=== PATIENT | male | born 1955 | race Hispanic/Latino ===

== ENCOUNTER 2020-06-14 05:51 | Day surgery (SDC) | payer OTHER ==
[2020-06-08 09:02] LABS: Basophils % 0.5 % (0-1.3); Hematocrit 46.2 % (39.6-49.0); Lymphocytes % 21.1 % (15.3-44.8); MPV 8.8 fL (7.6-11.3); RBC Red Blood Cell Count 5.12 M/uL (4.33-5.43)
--- NOTE | 2020-06-08 09:05 | RAD REPORT ---
EXAM DESCRIPTION: Yared Fischer (2 Views)06/08/2020 8:53 am CLINICAL HISTORY: Preop for shoulder surgery COMPARISON: None FINDINGS: The lungs appear clear of acute infiltrate. The heart is normal size IMPRESSION: No acute abnormalities displayed
[2020-06-08 10:07] LABS: Protime INR 0.92
--- OUTSIDE RECORDS SUMMARY | 2020-06-14 05:56 | XMS REPORT ---
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
--- OUTSIDE RECORDS SUMMARY | 2020-06-14 05:56 | XMS REPORT ---
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
--- OUTSIDE RECORDS SUMMARY | 2020-06-14 05:56 | XMS REPORT ---
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
--- OUTSIDE RECORDS SUMMARY | 2020-06-14 05:56 | XMS REPORT ---
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
--- OUTSIDE RECORDS SUMMARY | 2020-06-14 05:56 | XMS REPORT | Continuity of Care Document ---
:1955 Author Organization [facility] t Address [facility] [place] [address] Care Team Providers Name Role Phone Unavailable Unavailable Unavailable Problems Condition Condition Condition Status Onset Resolution Last Treating Co mments Source Name Details Category Date Date Treatment Clinician Date Mixed Mixed Problem Active [facility] hyperlipid hyperlipid Arcelia kes - emia emia [facility] Other Other Problem Active [facility] chronic chronic [facility] pain pain [facility] Subacromia Subacromia Problem Active [facility] bursitis l bursitis Arcelia kes - of left of left Mem[facility] shoulder shoulder l joint joint [facility] Pain, Pain, Problem Active [facility] joint, joint, [facility] - shoulder, shoulder, Kevyn alban left left l [facility] Coronary Coronary Problem Active [facility] artery artery [facility] - disease of disease of [place] artery of artery of [place] heart with heart with Cl inics stable stable angina angina pectoris pectoris Stented Stented Problem Active [facility] coronary coronary [facility] - artery artery [facility] l [facility] Body mass Body mass Problem Active [facility] index index [facility] - (BMI) (BMI) Memoria 30.0-30.9, 30.0-30.9, l adult adult [facility] Other Other Problem Active [facility] obesity obesity [facility] - due to due to Memoria excess excess l calories calories Outpat i ent Clinics Allergies, Adverse Reactions, Alerts This patient has no known allergies or adverse reactions. Medications Ordered Filled Start Stop Current Ordering Indication Dosage Frequency Signature Comments Components Source Medication Medication Date Date Medication? Clinician (SIG) Name Name Acetaminoph Acetaminoph Yes Brian [address] [facility] en-Codeine en-Codeine 8- as needed [facility] - #3 #3 00:00: Memoria 00 l [facility] Atorvastati Atorvastati Yes Brian [address] [facility] n Calcium n Calcium 3- [facility] - 00:00: Mem 00 [facility] - Yes Brian not [facility] 1-30 defined [facility] - 00:00: Memoria 00 [facility] Procedures This patient has no known procedures. Encounters Start End Encounter Admission Attending Care Care Encounter Source Date/Time Date/Time Type Type Clinicians Facility Department ID 2020-06-12 2020-06-12 Outpatient Alexy Traceyt [id number] [facility] 12:09:00 12:09:00 t [facility] 2020-06-09 2020-06-09 Outpatient Alexy Traceyt [id number] [facility] 08:08:00 08:08:00 t [facility]Ke[facility] 2020-05-15 2020-05-15 [place]patient [place] [id number] [facility] 09:02:00 09:02:00 t [facility] 2020-05-11 2020-05-11 [facility] [place] [id number] 16:48:00 16:48:00 t [facility] 2020-05-11 2020-05-11 [place]patient [place] [id number] 15:00:00 15:00:00 t [facility] 2020-05-10 2020-05-10 [place] [place] [place] [id number] 15:15:00 15:15:00 [facility] 2020-05-09 2020-05-09 Outpatient [place] [id number] [address] 16:38:00 16:38:00 t [facility] and [facility] - [facility] 2020-04-28 2020-04-28 [place] [place] [id number] [address] 07:12:00 07:12:[address] [facility] - [facility] Clinics 2020-04-25 2020-04-25 [place] [id number] [address] 09:08:00 09:08:[address] Luke [facility] - Drive [facility] 2020-04-04 2020-04-04 [place] [place] [place] [id number] [address] 11:23:00 11:23:[address] Luke [facility] - Drive [facility] 2020-03-29 2020-03-29 [place] [place] [place] [id number] [facility] 14:51:00 14:51:00 t [facility] 2020-03-22 2020-03-22 [place] [place] [place] [id number] [address] 08:52:00 08:52:[facility] [address] [facility]ics 2020-03-17 2020-03-17 [place] [place] [place] [id number] [address] 08:45:00 08:45:00 [facility] [place] [facility] [facility] 2020-03-15 2020-03-15 [place] [place] [place] [id number] 13:15:00 13:15:00 t Bone Bone and [facility] - [facility] 2020-03-14 2020-03-14 [place] [place] [id number] [address] 15:06:00 15:06:00 t Bone [facility] and [facility] - [facility] 2020-02-17 2020-02-17 [place] [place] [place] [id number] 09:00:00 09:00:00 t Bone Bone and [facility] - [facility] ent Clinics 2020-02-14 2020-02-14 [place] [place] [place] [id number] 14:17:00 14:17:00 t [facility] 2020-02-03 2020-02-03 [place] [place] [place] [id number] [address] 10:45:00 10:45:00 t [facility] Clinics 2020-01-24 2020-01-24 [place] [place] [place] [id number] 10:22:00 10:22:00 t [facility] and [facility] - [facility] 2019-12-30 2019-12-30 [facility] [place] [id number] 10:27:00 10:27:00 t ARKeX Elastra [employer] [facility] 2019-12-27 2019-12-27 [place] [place] [id number] 16:56:00 16:56:00 t Bone [facility] and [facility] ent Clinics 2019-12-22 2019-12-22 [place] [id number] [address] 16:00:00 16:00:00 t mPowa [facility] ent Clinics 2019-12-16 2019-12-16 [place] [id number] 14:33:00 14:33:00 t ARKeX Elastra [facility] ent Clinics 2019-12-16 2019-12-16 [place] [id number] 09:30:00 09:30:00 t Bone Bone and [facility] ent Clinics 2019-12-13 2019-12-13 [place] [place] [place] [id number] 09:42:00 09:42:00 t Sw[facility] Clinics 2019-12-09 2019-12-09 [place] [place] [place] [id number] 09:30:00 09:30:00 t Bone [facility] and [facility] ent Clinics 2019-12-01 2019-12-01 Outpatient Alexy Maurer [id number] 08:25:00 08:25:00 mPowa [employer] [facility] 2019-11-17 2019-11-17 Outpatient Alexy Maurer [id number] 11:00:00 11:00:00 mPowa [employer] [facility] Results This patient has no known results.
--- OUTSIDE RECORDS SUMMARY | 2020-06-14 05:56 | XMS REPORT ---
:1955 Author Organization eClinicalWorks Care Team Providers Name Role Phone Juan Manuel Lokesh Provider Role Unavailable Allergies, Adverse Reactions, Alerts Substance Reaction Event Type N.K.D.A. 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
--- OUTSIDE RECORDS SUMMARY | 2020-06-14 05:56 | XMS REPORT ---
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
--- OUTSIDE RECORDS SUMMARY | 2020-06-14 05:56 | XMS REPORT ---
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
--- OUTSIDE RECORDS SUMMARY | 2020-06-14 05:56 | XMS REPORT ---
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
--- OUTSIDE RECORDS SUMMARY | 2020-06-14 05:57 | XMS REPORT ---
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
--- OUTSIDE RECORDS SUMMARY | 2020-06-14 05:57 | XMS REPORT ---
:1955 Author Organization eClinicalWorks Care Team Providers Name Role Phone Brian Vega Provider Role Unavailable Allergies, Adverse Reactions, Alerts Substance Reaction Event Type N.K.D.A. Info Not Available Non Drug Allergy Problems Problem Type Condition Code Onset Dates Condition Statu s Assessment Pain, joint, shoulder, left M25.512 Active Problem Other chronic pain G89.29 Active Assessment Traumatic incomplete tear of left S46.012D Active rotator cuff, subsequent encounter Assessment Impingement syndrome, shoulder, M75.42 Active left Assessment Subacromial bursitis of left M75.52 Active shoulder joint Problem Body mass index (BMI) 30.0-30.9, Z68.30 Active adult Problem Pain, joint, shoulder, left M25.512 Active Problem Other obesity due to excess E66.09 Active calories Problem 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
--- OUTSIDE RECORDS SUMMARY | 2020-06-14 05:57 | XMS REPORT ---
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
--- OUTSIDE RECORDS SUMMARY | 2020-06-14 05:57 | XMS REPORT ---
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
--- OUTSIDE RECORDS SUMMARY | 2020-06-14 05:57 | XMS REPORT ---
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 Problem Mixed hyperlipidemia E78.2 Active Problem Subacromial bursitis of left M75.52 Active shoulder joint Problem Stented coronary artery Z95.5 Acti ve Medications Medication Code Code Instructions Start End Status Dosage System Date Date Acetaminophen-Co [facility] 64157458302 300-30 MG Jun 12, Active 1 tablet deine #3 Orally every 6 2019 as neede d hrs Atorvastatin [facility] 11724670632 10 MG Orally Active 1 tablet Calcium Once a day Aspir-81 [facility] 0 Dec 09, Active not 2020 defined Results No Known Results Summary Purpose eClinicalWorks Submission
--- OUTSIDE RECORDS SUMMARY | 2020-06-14 05:57 | XMS REPORT ---
:1955 Author Organization eClinicalWorks Care Team Providers Name Role Phone ZambranoLokesh Provider Role Unavailable Allergies, Adverse Reactions, Alerts Substance Reaction Event Type N.K.D.A. 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 Problem Mixed hyperlipidemia E78.2 Active Problem Subacromial bursitis of left M75.52 Active shoulder joint Problem Stented coronary artery Z95.5 Acti ve Assessment Cervicalgia M54.2 Active Assessment Other chronic pain G89.29 Active Assessment Body mass index (BMI) 30.0-30.9, Z68.30 Active adult Assessment Other obesity due to excess E66.09 Active calories Assessment Stented coronary artery Z95.5 Acti ve Assessment Prediabetes R73.03 Active Assessment Acute pain of left shoulder M25.512 Active Assessment Mixed hyperlipidemia E78.2 Active Assessment History of fall Z91.81 Active Assessment Sprain of left rotator cuff S43.422A Active capsule, initial encounter Medications Medication Code Code Instructions Start End Status Dosage System Date Date [facility] 0 Dec 09, Active not 2020 defined Atorvastatin [facility] 64167000092 10 MG Orally Active 1 tablet Calcium Once a day Results No Known Results Summary Purpose eClinicalWorks Submission
[2020-06-14] MEDS ORDERED: Ringers Lactate 1,000 ML IV ONE ×2 (06:26→08:21)
[2020-06-14] MEDS ORDERED: CEFAZOLIN/SWI 2gm 2 GM/20 ML SYR ONE (06:26)
[2020-06-14] MEDS ORDERED: propofoL 200 MG/20 ML VIAL IV ONE (06:55)
[2020-06-14] MEDS ORDERED: LIDOCAINE 2% MPF 5 ML VIAL ONE (06:55)
[2020-06-14] MEDS ORDERED: MIDAZOLAM HCL 2 MG/2 ML INJ ONE (06:55)
[2020-06-14] MEDS ORDERED: ROCURONIUM 50 MG/5 ML VIAL IV ONE (06:56)
[2020-06-14] MEDS ORDERED: FENTANYL CITR 250 MCG/5 ML ONE (06:56)
[2020-06-14] MEDS ORDERED: ROPLVACAINE HCL 40 ML ONE (07:04)
[2020-06-14] MEDS ORDERED: dexAMETHasone 4 MG/ML VIAL ONE (07:04)
[2020-06-14] MEDS ORDERED: EPINEPHRINE/PF 1 MG/ML AMP ONE (07:20)
[2020-06-14] MEDS ORDERED: KETOROLAC 30 MG/ML INJ ONE (09:17)
--- NOTE | 2020-06-14 09:38 | P.BOP ---
Preoperative diagnosis: left partial rotator cuff tear, bicipital tendinitis, impingement syndrome Postoperative diagnosis: same Primary procedure: left shoulder arthroscopic rotator cuff debridement Secondary procedure: left arthroscopic subacromial decompression Other procedure(s): left open subpectoral biceps tenodesis Hyperion Administrator: NONE,NONE Estimated blood loss: 10 cc Specimen: none Findings: see dictation Anesthesia: General Complications: None Implants: 7 mm arthrex biotenodesis screw Fluids & blood products: per anesthesia record Transferred to: Recovery Room Condition: Good
[2020-06-14 10:33] VITALS: TEMP 96.5
--- NOTE | 2020-06-14 10:43 | RAD REPORT ---
EXAM DESCRIPTION: RAD - Shoulder 1 View - 06/14/2020 10:04 am CLINICAL HISTORY: Right shoulder surgery FINDINGS: Frontal view of the right shoulder was obtained. No fracture or dislocation is seen.
[2020-06-14] MEDS ORDERED: HYDROCODONE/APAP 7.5/325 MG TAB PO ONE (10:45)
[2020-06-14] MEDS ORDERED: HYDROCODONE/APAP 7.5/325 MG TAB ONE (10:50)
[2020-06-14 11:47] VITALS: BP 138/72; O2SAT 94
--- NOTE | 2020-06-19 10:27 | OP ---
Date of Procedure: 06/14/2020 Surgeon: Brian Vega MD Preoperative Diagnoses: Left partial rotator cuff tear, left shoulder impingement syndrome. Postoperative Diagnoses: Left partial rotator cuff tear, left shoulder impingement syndrome. Procedure Performed: 1.Left shoulder arthroscopic rotator cuff debridement. 2.Left shoulder arthroscopic subacromial decompression. 3.Left shoulder open subpectoral biceps tenodesis. Anesthesia: General endotracheal. Fluids: Per Anesthesia record. Estimated Blood Loss: 10 cc. Complications: None. Implants: 7 mm [employer] Bio-Tenodesis screw. Indication For Procedure: Sebastián is a 64-year-old male, who presented to my clinic with left shoulde r pain. MRI demonstrated rotator cuff tear. He failed conservative treatments including both steroid injection as well as physical therapy. He has continued pain and difficulty with activi ties of daily living, recommended operative treatment. He expressed understanding and elected to pro ceed with operative treatment. Description Of Procedure: After informed consent was obtained, the patient was identified in the pre operative holding area. The left upper extremity was marked. The patient was then taken to the PACU where he underwent an interscalene block to the left upper extremity by Anesthesia. He was then sabine en back to the operating room, transferred to the operating table in supine fashion, placed under gen eral endotracheal anesthesia. He was then placed in a beach chair position with the extremities well padded. Left upper extremity was then prepped and draped in usual sterile fashion. A time-out was initiated. The correct patient and procedure were confirmed and identified. The patient did receive his preoperative prophylactic antibiotics. Via the posterior portal position, a spinal needle was i ntroduced into the glenohumeral joint and 30 mL of normal saline was injected to distend the joint ca psule. A posterior portal was then created and the arthroscope was brought in the posterior portal p osition and anterior portal cannulas were placed under direct visualization. Diagnostic arthroscopy was performed. The patient was noted to have an intact subscapularis near the biceps tend on anchor, which appeared to be biceps tendon. This was removed using pituitary grasper. Anterior and posterior labrum were intact and stable to probe. There were no loose bodies found on the axillary pouch. No significant chondromalacia noted. The patient did have some undersurface fra leela in the inferior aspect of the supraspinatus, which was debrided using an arthroscopic shaver. T here was a significant fraying of the biceps tendon and anchor and biceps tenotomy was performed usin g meniscal biter. The arthroscope was then brought into the subacromial space. Subacromial bursecto my was performed. A lateral was port was then created. Undersurface of the acromion was then debrid ed using a radiofrequency ablator. There was noted to be some fraying of the coracoacromial ligament . Subacromial decompression was performed using radiofrequency ablator and arthroscopic maite. Once significant osteophytes were debrided off undersurface of the acromion, arthroscopic instruments were then removed without complication. The wounds were then irrigated thoroughly approximate ly a 3 cm incision was made just medial to the pec insertion on the proximal humerus. Dissection was then taken brought through the incision, musculotendinous junction. A guide p in was then placed within bicipital groove followed by 7.5 mm reamer. The biceps tendon was __. The wounds were then irrigated thoroughly with normal saline. Subcutaneous tissue was approxima mouna using a 2-0 Vicryl. Skin was approximated using a 3-0 Monocryl. Sterile dressings were applied. The patient was placed in a shoulder immobilizer, awakened, and transferred to PACU in stable condi tion. Postoperative Plan: He will be nonweightbearing of his left upper extremity. He will follow biceps tenodesis and subacromial decompression protocol. JENNY/MODL Voice ID: [id number] Report ID: [id number]
== END 2020-06-14 11:16 | disposition home or self-care (01) ==
LOC: OR 05:51
PROVIDERS: ATTEND Orthopaedic Surgery Sports Medicine
PROC: 0LS40ZZ Reposition Left Upper Arm Tendon, Open Approach (ICD-10-PCS; 2020-06-14)
PROC: 0RHK04Z Insertion of Internal Fixation Device into Left Shoulder Joint, Open Approach (ICD-10-PCS; 2020-06-14)
PROC: 0MB24ZZ Excision of Left Shoulder Bursa and Ligament, Percutaneous Endoscopic Approach (ICD-10-PCS; 2020-06-14)
PROC: 0RBK4ZZ Excision of Left Shoulder Joint, Percutaneous Endoscopic Approach (ICD-10-PCS; principal; 2020-06-14 07:30)
DX: M75.102 Unspecified rotator cuff tear or rupture of left shoulder, not specified as traumatic (principal); M75.42 Impingement syndrome of left shoulder; E78.5 Hyperlipidemia, unspecified; Z11.59 Encounter for screening for other viral diseases
CPT/HCPCS: 85025; 80048; 36415; 85610; 85730; 71046; 73020; 29822; 23430; 23929; J2704; J0171; J2250; J3010; J2795; J0690; J7120 ×2; U0002

== ENCOUNTER 2022-05-27 06:59 | Day surgery (SDC) | payer OTHER ==
[2022-05-24 11:01] LABS: Absolute Lymphocytes (CBC) 0.9 K/uL (0.7-4.9); Hematocrit 44.3 % (39.6-49.0); Lymphocytes % 13.5 % (15.3-44.8); MCV 90.5 fL (80-100)
[2022-05-24 11:04] LABS: SARS-CoV-2 Antigen Rapid Res Negative (Negative)
[2022-05-24 11:11] LABS: Potassium 3.8 mmol/L (3.5-5.1)
--- NOTE | 2022-05-24 11:46 | RAD REPORT ---
EXAM DESCRIPTION: RAD - Chest Pa And Lat (2 Views) - 05/24/2022 10:44 am CLINICAL HISTORY: Pre op pending hernia surgery COMPARISON: Two view chest 06/08/2020 TECHNIQUE: Frontal and lateral views of the chest were obtained. FINDINGS: The lungs are clear. Interstitial pattern matches comparison. No hilar mass or lymphadeno emily. Heart size is normal and central vasculature is within normal limits. No pleural effusion or pneumothorax seen. No acute bony finding noted. No aortic abnormality. No significant change from comparison study. IMPRESSION: No acute cardiopulmonary process.
[2022-05-27] MEDS ORDERED: Ringers Lactate 1,000 ML IV ONE (07:32)
[2022-05-27] MEDS ORDERED: CELECOXIB 100 MG CAPSULE ONE (07:39)
[2022-05-27] MEDS ORDERED: ACETAMINOPHEN 500 MG TAB ONE (07:40)
[2022-05-27] MEDS ORDERED: FENTANYL CITR 100 MCG/2 ML ONE (08:10)
[2022-05-27] MEDS ORDERED: LIDOCAINE 2% MPF 5 ML VIAL ONE (08:10)
[2022-05-27] MEDS ORDERED: ROCURONIUM 50 MG/5 ML VIAL IV ONE (08:10)
[2022-05-27] MEDS ORDERED: dexAMETHasone 10 MG/ML VIAL ONE (08:10)
[2022-05-27] MEDS ORDERED: propofoL 200 MG/20 ML VIAL IV ONE (08:10)
[2022-05-27] MEDS ORDERED: MIDAZOLAM HCL 2 MG/2 ML INJ ONE (08:11)
[2022-05-27] MEDS ORDERED: ONDANSETRON 4 MG/2 ML VIAL ONE ×2 (08:11→09:39)
[2022-05-27] MEDS ORDERED: KETOROLAC 30 MG/ML INJ ONE (08:11)
[2022-05-27] MEDS ORDERED: BUPIVACAINE 0.5% Inj,MDV 50 mL VIAL ONE (08:21)
[2022-05-27] MEDS ORDERED: CEFAZOLIN SODIUM 1 GM/VIAL ONE (08:49)
[2022-05-27] MEDS ORDERED: GLYCOPYRROLATE 0.2 MG/ML SYR ONE (09:08)
[2022-05-27] MEDS ORDERED: NEOSTIGMINE 1 MG/ML -10 ML VIAL ONE (09:08)
--- NOTE | 2022-05-27 09:13 | P.BOP ---
Preoperative diagnosis: tender left inguinal hernia reducible Postoperative diagnosis: same Primary procedure: Laparoscopic repair of tender left inguinal hernia Broke Beater Machine Operator: Jes Milner) Estimated blood loss: <10cc Specimen: hernia sac Findings: direct hernia Anesthesia: General Complications: None Implants: medium 3d mesh Transferred to: Recovery Room Condition: Good
[2022-05-27] MEDS: HYDROMORPHONE HCL 1 MG/ML INJ ONE ×2 (09:34→09:47)
[2022-05-27 11:09] VITALS: BP 155/86; TEMP 97; O2SAT 93
== END 2022-05-27 11:50 | disposition home or self-care (01) ==
LOC: OR 06:59
PROVIDERS: ATTEND Surgery
PROC: 0YQ64ZZ Repair Left Inguinal Region, Percutaneous Endoscopic Approach (ICD-10-PCS; principal; 2022-05-27 08:30)
DX: K40.90 Unilateral inguinal hernia, without obstruction or gangrene, not specified as recurrent (principal); Z20.822 Contact with and (suspected) exposure to COVID-19; E78.00 Pure hypercholesterolemia, unspecified; E78.5 Hyperlipidemia, unspecified; I48.91 Unspecified atrial fibrillation; I25.10 Atherosclerotic heart disease of native coronary artery without angina pectoris; Z95.5 Presence of coronary angioplasty implant and graft
CPT/HCPCS: 85025; 80048; 36415; 88302; 71046; 87811; 49650; J2704; J2710; J2250; J3010; J1100; J1170; J7120; J2405 ×2; J0690

== ENCOUNTER 2022-10-15 07:30 | Day surgery (SDC) | payer OTHER ==
[2022-10-10 10:00] LABS: Absolute Lymphocytes (CBC) 1.3 K/uL (0.7-4.9); Hematocrit 44.1 % (39.6-49.0); Lymphocytes % 19.3 % (15.3-44.8); MCV 87.3 fL (80-100); MPV 7.7 fL (7.6-11.3); RBC Red Blood Cell Count 5.05 M/uL (4.33-5.43)
[2022-10-10 10:02] LABS: Protime INR 0.98
[2022-10-10 10:12] LABS: Potassium 3.8 mmol/L (3.5-5.1)
--- NOTE | 2022-10-11 07:53 | EKG ---
Test Date: 2022-10-10 Test Time: 09:32:15 Methods Examiner: KEVIN MEASUREMENT RESULTS: Intervals: Rate: 64 VA: 174 QRSD: 90 QT: 406 QTc: 418 [place]: P: 69 VA: 174 QRS: 27 T: -43 INTERPRETIVE STATEMENTS: Normal sinus rhythm Nonspecific T wave abnormality Abnormal ECG No previous ECG available for comparison Electronically Signed On 10-11-22 07:49:16 HEAD SILVERMAN by Benjy Contreras
[2022-10-15] MEDS ORDERED: NA CHLORIDE 0.9% 500 ML ONE (08:10)
[2022-10-15] MEDS ORDERED: FENTANYL CITR 100 MCG/2 ML ONE (08:49)
[2022-10-15] MEDS ORDERED: MIDAZOLAM HCL 2 MG/2 ML INJ ONE (08:49)
[2022-10-15] MEDS ORDERED: ATROPINE SULF 1 MG/10 ML SYR IV ONE (08:49)
[2022-10-15] MEDS ORDERED: NA CHLORIDE 0.9% 0 ML IV ONE (08:49)
--- NOTE | 2022-10-15 09:37 | OP ---
Surgeon: Benjy Contreras MD Engineering Illustrator: Ms. Eulalia Marino. The patient will remain at bedrest for 2 hours after his Angio-Seal. He will go home today and I anibal l see him in the office in the next 2 weeks. Admitted as an outpatient to my service on 10/15/2022 to the manager cardiac cath. He underwent a left heart cat heterization, selective coronary arteriogram, left ventriculogram, and common femoral artery angiogra m. Indication: CAD, status post RCA stent with abnormal stress test. Procedure In Detail: In the manager cardiac cath, the patient was prepped and draped in routine sterile fashion. Given Versed and fentanyl for sedation. A 6-Ind[place]ian sheath introduced in the right common femoral a rtery using the Seldinger technique and 10 cc of Xylocaine. Angiography there was normal. Angio-Sea l was used to close the case. Marylu catheter left and right were used to cannulate the left main a nd right main respectively. The left main LAD and circumflex were normal. The RCA was normal. Ther e was a mid RCA stent that was patent with no residual stenosis. The patient tolerated the procedure well. There were no complications. Blood Loss: 5 cc. Anesthesia: Total conscious sedation was 30 minutes. Postoperative Diagnosis: Coronary artery disease, status post RCA stent patent. We will continue medical therapy. KAREN/DAIANA Voice ID: [id number] Report ID: [id number]
[2022-10-15 10:54] VITALS: BP 122/63; O2SAT 97
[2022-10-15 10:55] VITALS: TEMP 97.8
== END 2022-10-15 10:55 | disposition home or self-care (01) ==
LOC: CCL 07:30
DX: I25.10 Atherosclerotic heart disease of native coronary artery without angina pectoris (principal); Z95.5 Presence of coronary angioplasty implant and graft
CPT/HCPCS: 93005; 85025; 80048; 36415; 85610; 85730; 93454; C1893; Q9966; C1760; G0269; J2250; J3010; J7040; J0461; J0583